=== PATIENT | male | born 1955 | race Caucasian/White ===

== ENCOUNTER 2022-07-30 13:35 | Emergency (ER) | payer MEDICARE, SELFPAY ==
[2022-07-30 13:46] VITALS: BP 152/82; PULSE 85; RESP 18; TEMP 36.1; O2SAT 100
--- NOTE | 2022-07-30 14:04 | ED.EYEPROB ---
HPI - Eye Problem General Chief complaint: Eye Problems Stated complaint: fb in left eye Time Seen by Provider: 07/30/22 14:04 Source: patient Mode of arrival: ambulatory Limitations: no limitations History of Present Illness HPI Narrative: 67-year-old male presented for complaint of left eye irritation since yesterday. He believes he may have a foreign body such as sawdust or dust from inside the home while he was painting, but does not recall something entering the eye. He rinsed the eye with water and used Visine drops. Endorses photophobia. Rates pain 10/10. Difficulty keeping the eye open due to pain. Denies purulent drainage or swelling. MD chief complaint: eye pain Related Data Allergies Allergy/AdvReac Type Severity Reaction Status Date / Time No Known Allergies Allergy Verified 07/30/22 13:53 Review of Systems Review of Systems: CONSTITUTIONAL: Denies body aches, fever, chills EYES:Endorses redness and pain to left eye; FB sensation, photophobia Denies visual changes ENT: Denies rhinorrhea, congestion, sore throat, or otalgia. CARDIOVASCULAR: Denies chest pain, palpitations RESPIRATORY: Denies cough or dyspnea. GASTROINTESTINAL: Denies abdominal pain, nausea, vomiting, or diarrhea. SKIN: Denies rash, itching, or wounds. MUSCULOSKELETAL: Denies back pain, joint pain, or myalgia. NEUROLOGIC: Denies numbness, tingling, or weakness. All systems reviewed & are unremarkable except as noted in HPI and below PMFSH Past Medical History Medical History (Updated 07/30/22 @ 14:54 by Yoli Jamison, PRIYA) No pertinent past medical history Comments At time of signature, I have reviewed and agree with nursing past medical, surgical, social and family history unless otherwise noted. Please see nursing chart for further information. There is no relevant family history pertinent to the presenting complaint Exam Narrative: GENERAL: Well-appearing HEAD: Normocephalic, atraumatic. EYES: Left conjunctival injection, tearing; No eye lid swelling/redness or purulent drainage. PERRLA, EOMI. Lid eversion shows no FB. ENT: Mucous membranes pink and moist. No rhinorrhea. Throat normal. Uvula midline. CHEST: Clear to auscultation. HEART: Regular rate and rhythm. ABDOMEN: Soft, nontender, nondistended SKIN: Warm, dry, no rash. Normal skin turgor. NEURO: No focal deficits. Alert and oriented x3 PSYCH: Normal affect. Course Course Emergency Course: Patient is aware of diagnosis, understands and agrees to treatment plan. Anticipatory guidance given. Patient agrees to follow-up as directed and is aware of reasons to seek care at the emergency department. Portions of this record may have been created with voice recognition software Level of Care: Express Care Visit Vital Signs Vital signs: Vital Signs Temperature 97 F L 07/30/22 13:46 Pulse Rate 85 07/30/22 13:46 Respiratory Rate 18 07/30/22 13:46 Blood Pressure 152/82 H 07/30/22 13:46 Pulse Oximetry 100 07/30/22 13:46 Oxygen Delivery Room Air 07/30/22 13:46 Temperature 97 F L 07/30/22 13:46 Pulse Rate 85 07/30/22 13:46 Respiratory Rate 18 07/30/22 13:46 Blood Pressure 152/82 H 07/30/22 13:46 Pulse Oximetry 100 07/30/22 13:46 Oxygen Delivery Room Air 07/30/22 13:46 Procedures FB Removal Eye Foreign Body #1: Foreign Body Removal Date: 07/30/22 Location: eye (L) Topical anesthetic used: tetracaine Foreign body: other (none) Evidence of corneal penetration: Yes Technique: irrigation and eye wash bottle Procedure performed under: direct visualization with magnification and other (hua lamp) Patient tolerated procedure: well and no complications Foreign Body Removal Narrative: No FB noted on exam. Approx 1mm Corneal abrasion to 2o'clock position over iris. MDM - Eye Problem MDM Narrative Medical decision making narrative: PE findings discussed with pt. I
== END 2022-07-30 14:23 | disposition home or self-care (01) ==
PROVIDERS: Emergency Provider Nurse Practitioner Family; PCP Family Medicine
DX: S05.02XA Injury of conjunctiva and corneal abrasion without foreign body, left eye, initial encounter (principal); X58.XXXA Exposure to other specified factors, initial encounter; Y92.009 Unspecified place in unspecified non-institutional (private) residence as the place of occurrence of the external cause
CPT/HCPCS: 99213; A9270; G0463